=== PATIENT | female | born 1965 | race Caucasian/White ===

== ENCOUNTER 2018-10-20 09:48 | Day surgery (SDC) | payer OTHER ==
[~2018-10-20] VITALS: Ht 152.4 cm; Wt 59.6 kg
[~2018-10-20 09:48] MED LIST: NO HOME MEDS
[2018-10-20 10:12] VITALS: Ht 152.4 cm; Wt 59.6 kg
[2018-10-20] MEDS ORDERED: LIDOCAINE 4% SOLUTION 50 ML BTL ONE (10:24)
[2018-10-20 10:30] VITALS: BP 132/65; PULSE 48; RESP 24
[2018-10-20] MEDS ORDERED: FENTAnyl 50 MCG/ML VIAL ONE (11:13)
[2018-10-20] MEDS ORDERED: MIDAZOLAM 1 MG/ML 2 ML INJ ONE ×2 (11:13)
== END 2018-10-20 11:13 | disposition home or self-care (01) ==
LOC: GIL 09:48
PROVIDERS: ATTEND Internal Medicine Gastroenterology
DX: K29.50 Unspecified chronic gastritis without bleeding (principal)
CPT/HCPCS: 43239; 88305; 88312; J2250; J3010; Z7610